=== PATIENT | female | born 1955 | race African-American/Black ===

== ENCOUNTER 2017-01-29 14:29 | Emergency (ER) | payer MEDICAID ==
[~2017-01-29] VITALS: Ht 162.6 cm; Wt 50.0 kg
[~2017-01-29 14:29] MED LIST: ATOR10TA PO; CITA40TA22 PO; CLON0.253 PO; COR6 PO; ESCI20TA PO; QUET300T2 PO
[2017-01-30 00:05] VITALS: BP 112/70
== END 2017-01-30 00:22 | disposition home or self-care (01) ==
LOC: ER 14:39
DX: S09.90XA Unspecified injury of head, initial encounter (principal); W05.0XXA Fall from non-moving wheelchair, initial encounter; Y93.89 Activity, other specified; I67.82 Cerebral ischemia; Y92.128 Other place in nursing home as the place of occurrence of the external cause; F20.0 Paranoid schizophrenia; I48.91 Unspecified atrial fibrillation; Z86.73 Personal history of transient ischemic attack (TIA), and cerebral infarction without residual deficits; Z95.2 Presence of prosthetic heart valve
CPT/HCPCS: 70450; 99284; J7030; Z7610; A4565

== ENCOUNTER 2017-12-22 15:15 | Emergency (ER) | payer MEDICAID ==
[~2017-12-22] VITALS: Ht 160 cm; Wt 62.0 kg
[~2017-12-22 15:15] MED LIST changes: +POTA10CA42 PO; +WARF1TAB46 PO
[2017-12-22] MEDS ORDERED: ATENOLOL 50 MG TABLET PO ONE (23:00)
[2017-12-23 03:34] VITALS: BP 105/53
== END 2017-12-23 03:36 | disposition home or self-care (01) ==
LOC: ER 15:25
DX: R45.851 Suicidal ideations (principal); I10 Essential (primary) hypertension; I48.91 Unspecified atrial fibrillation; E78.00 Pure hypercholesterolemia, unspecified; F20.9 Schizophrenia, unspecified; Z88.6 Allergy status to analgesic agent; Z79.01 Long term (current) use of anticoagulants; Z86.73 Personal history of transient ischemic attack (TIA), and cerebral infarction without residual deficits
CPT/HCPCS: 99284